=== PATIENT | female | born 1975 | race Caucasian/White ===

== ENCOUNTER 2017-07-17 23:52 | Emergency (ER) | payer OTHER ==
[~2017-07-17] VITALS: Ht 154.9 cm; Wt 63.5 kg
[~2017-07-17 23:52] MED LIST: INTESTINEX1 CA1 PO; VANCOCIN ORAL SUSP. PO; ZANTAC150 MG PO
[2017-07-18] MEDS ORDERED: PROTONIX20 MG (00:09)
[2017-07-18] MEDS ORDERED: SYNTHROID112 MCG (00:09)
[2017-07-18] MEDS ORDERED: VISTARIL50 MG PO (05:21)
== END 2017-07-18 05:05 | disposition home or self-care (01) ==
LOC: ER 23:52
DX: R06.02 Shortness of breath (principal); E03.9 Hypothyroidism, unspecified

== ENCOUNTER → 2017-07-21 | Emergency (ER) | payer OTHER ==
[~2017-07-21] VITALS: Ht 154.9 cm; Wt 63.5 kg
[~2017-07-21] MED LIST changes: +PROTONIX20 MG; +SYNTHROID112 MCG; +VISTARIL50 MG; +VISTARIL50 MG PO
== END | disposition home or self-care (01) ==
LOC: ER 13:48
DX: K52.9 Noninfective gastroenteritis and colitis, unspecified (principal)

== ENCOUNTER → 2017-07-24 | Emergency (ER) | payer OTHER ==
[~2017-07-24] VITALS: Ht 154.9 cm; Wt 62.6 kg
== END | disposition home or self-care (01) ==
LOC: ER 17:53
DX: M94.0 Chondrocostal junction syndrome [Tietze] (principal); R07.9 Chest pain, unspecified

== ENCOUNTER 2017-08-25 15:35 | Outpatient (CLI) | payer OTHER | END 2017-08-25 16:00 | disposition home or self-care (01) | LOC: MAMO-SONO 15:35 | DX: Z12.31 Encounter for screening mammogram for malignant neoplasm of breast (principal); N92.0 Excessive and frequent menstruation with regular cycle ==

== ENCOUNTER 2017-09-07 07:53 | Outpatient (CLI) | payer OTHER | END 2017-09-07 08:04 | disposition home or self-care (01) | LOC: SONOGRAMA 07:53 | DX: R10.11 Right upper quadrant pain (principal) ==

== ENCOUNTER 2017-11-18 13:31 | Outpatient (CLI) | payer OTHER | END 2017-11-18 16:39 | disposition home or self-care (01) | LOC: SONOGRAMA 13:31 → MAMO-SONO 14:15 → SONOGRAMA 16:39 | DX: R22.1 Localized swelling, mass and lump, neck (principal) ==

== ENCOUNTER 2017-12-14 15:48 | Emergency (ER) | payer OTHER ==
[~2017-12-14] VITALS: Ht 154.9 cm; Wt 63.5 kg
== END 2017-12-14 16:43 | disposition home or self-care (01) ==
LOC: ER 15:48
DX: G43.109 Migraine with aura, not intractable, without status migrainosus (principal)

== ENCOUNTER 2018-12-28 15:46 | Emergency (ER) | payer OTHER ==
[~2018-12-28] VITALS: Ht 154.9 cm; Wt 64.9 kg
== END 2018-12-28 21:02 | disposition home or self-care (01) ==
LOC: ER 15:46
DX: K52.9 Noninfective gastroenteritis and colitis, unspecified (principal)

== ENCOUNTER 2022-12-09 06:00 | Day surgery (SDC) | payer OTHER ==
[~2022-12-09 06:00] MED LIST changes: -SYNTHROID112 MCG; +SYNTHROID112 MCG PO
== END 2022-12-09 14:00 | disposition home or self-care (01) ==
LOC: CIR.AMB 06:00
PROVIDERS: ATTEND Obstetrics & Gynecology
DX: N84.1 Polyp of cervix uteri (principal); N84.0 Polyp of corpus uteri; Z20.822 Contact with and (suspected) exposure to COVID-19

== ENCOUNTER 2024-01-12 15:33 | Emergency (ER) | payer OTHER ==
[~2024-01-12] VITALS: Ht 156.2 cm; Wt 69.9 kg
[2024-01-12] MEDS ORDERED: FAMOtidine 200mg/20ml VIAL ONE (17:12)
[2024-01-12] MEDS ORDERED: FAMOtidine 10 MG/ML (4ML VIAL) IV ONE (17:15)
[2024-01-12] MEDS ORDERED: 0.9 % SODIUM CHLORIDE 500 ML IV ONE (17:15)
[2024-01-12] MEDS ORDERED: LORazepam 2 MG/ML VIAL IM ONE (17:15)
[2024-01-12] MEDS ORDERED: LORazepam 2 MG/ML VIAL ONE (17:35)
[2024-01-12 17:40] LABS: HEMATOCRIT 39.7 % (36.0-45.00); HEMOGLOBIN 13.3 g/dL (12.0-15.00); MEAN CELL VOLUME 86.8 fL (80.00-100.00); MEAN CORPUSCULAR HEMOGLOBIN 29.2 pg (27.00-32.0); MEAN CORPUSCULAR HGB CONC 33.6 g/dl (32.0-36.0); PLATELET COUNT 447 K/uL (150-450); RED BLOOD COUNT 4.57 M/uL (4.00-6.00); RED CELL DISTRIBUTION WIDTH 13.5 % (11.5-14.5)
[2024-01-12 17:50] LABS: PH,URINE 5.5 (5.0-8.0); URINE APPEARANCE Clear; URINE BILIRRUBIN Negative (NEGATIVE); URINE BLOOD Negative; URINE COLOR Yellow; URINE GLUCOSE Negative (NEGATIVE); URINE LEUKOCYTE Small; URINE NITRATE Negative; URINE PROTEIN Negative (NEGATIVE); URINE UROBILINOGEN 0.2 E.U./dl
[2024-01-12 17:54] LABS: URINE BACTERIA 956.2 uL (0.0-1933); URINE EPITHELIAL CELLS 15.9 uL (0.0-38.8); URINE RBC 21.9 uL (0.0-20.8); URINE WBC 59.6 uL (0.0-23.2)
[2024-01-12 18:15] LABS: ALBUMIN 3.9 gm/dL (3.4-5.0); BILIRUBIN TOTAL 0.3 mg/dL (0.3-1.2); CALCIUM 8.9 mg/dL (8.5-10.1); CREATININE SERUM 0.84 mg/dL (0.55-1.02); GFR 72.06; GLOBULINA 4.3 G/DL (2.4-3.5); POTASSIUM 3.68 mEq/L (3.5-5.1); TOTAL PROTEIN 8.2 gm/dL (6.4-8.2); TSH 0.61 uIU/mL (0.358-3.74)
== END 2024-01-12 21:03 | disposition home or self-care (01) ==
LOC: ER 15:34
PROVIDERS: General Practice
DX: R53.81 Other malaise (principal); F41.9 Anxiety disorder, unspecified; E03.8 Other specified hypothyroidism; Z88.1 Allergy status to other antibiotic agents; Z91.041 Radiographic dye allergy status

== ENCOUNTER 2024-05-14 16:01 | Emergency (ER) | payer OTHER ==
[~2024-05-14] VITALS: Ht 154.9 cm; Wt 67.1 kg
[2024-05-14] MEDS ORDERED: ACETAMINOPHEN 500 MG GEL..CAP PO ONE (19:00)
[2024-05-14] MEDS ORDERED: FAMOTIDINE/PF 20 MG/2 ML VIAL IV ONE (19:00)
[2024-05-14 19:23] LABS: HEMATOCRIT 42.3 % (36.0-45.00); HEMOGLOBIN 14.1 g/dL (12.0-15.00); MEAN CELL VOLUME 87.9 fL (80.00-100.00); MEAN CORPUSCULAR HEMOGLOBIN 29.3 pg (27.00-32.0); MEAN CORPUSCULAR HGB CONC 33.3 g/dl (32.0-36.0); PLATELET COUNT 437 K/uL (150-450); RED BLOOD COUNT 4.81 M/uL (4.00-6.00); RED CELL DISTRIBUTION WIDTH 13.6 % (11.5-14.5)
[2024-05-14 19:47] LABS: ALBUMIN 3.6 gm/dL (3.4-5.0); BILIRUBIN TOTAL 0.16 mg/dL (0.3-1.2); CALCIUM 8.8 mg/dL (8.5-10.1); CREATININE SERUM 0.88 mg/dL (0.55-1.02); GFR 68.29; GLOBULINA 4.3 G/DL (2.4-3.5); POTASSIUM 3.91 mEq/L (3.5-5.1); TOTAL PROTEIN 7.9 gm/dL (6.4-8.2)
[2024-05-14] MEDS ORDERED: 0.9 % SODIUM CHLORIDE 500 ML IV ONE (20:45)
[2024-05-14] MEDS ORDERED: KETOROLAC TROMETHAMINE 30 MG VIAL IV ONE (21:00)
== END 2024-05-14 21:51 | disposition home or self-care (01) ==
LOC: ER 16:03
PROVIDERS: Nurse Practitioner Family
DX: M94.0 Chondrocostal junction syndrome [Tietze] (principal); R53.81 Other malaise; R07.89 Other chest pain; E03.9 Hypothyroidism, unspecified; Z88.8 Allergy status to other drugs, medicaments and biological substances

== ENCOUNTER 2025-02-04 04:02 | Emergency (ER) | payer OTHER ==
[~2025-02-04] VITALS: Ht 154.9 cm; Wt 69.4 kg
[2025-02-04 04:09] VITALS: BP 140/80; O2SAT 98
[2025-02-04] MEDS ORDERED: SYNTHROID125 MCG PO (04:11)
[2025-02-04] MEDS ORDERED: ORPHENADRINE CITRATE 30 MG/ML AMPUL ONE (05:08)
[2025-02-04] MEDS ORDERED: ORPHENADRINE CITRATE 30 MG/ML AMPUL IM STA (05:08)
[2025-02-04] MEDS ORDERED: KETOROLAC TROMETHAMINE 60 MG VIAL IM STA (05:08)
[2025-02-04] MEDS ORDERED: KETOROLAC TROMETHAMINE 60 MG VIAL IM ONE (05:09)
[2025-02-04] MEDS ORDERED: NORFLEX100MG PO (05:46)
[2025-02-04] MEDS ORDERED: MELOXICAM15 MG PO (05:46)
== END 2025-02-04 05:50 ==
LOC: ER 04:13
DX: M25.511 Pain in right shoulder (principal); Z88.1 Allergy status to other antibiotic agents; R06.02 Shortness of breath; E03.8 Other specified hypothyroidism